=== PATIENT | female | born 1950 | race Caucasian/White ===

== ENCOUNTER 2024-12-14 08:06 | Inpatient (IN) | payer OTHER ==
[~2024-12-14] VITALS: Ht 165.1 cm; Wt 56.8 kg
[2024-12-14 08:08] VITALS: O2SAT 99
[2024-12-14 09:04] LABS: BASOPHILS % 0.3 % (0.0-2.0); HEMATOCRIT. 35.3 % (36.0-48.0); HEMOGLOBIN. 11.6 g/dL (12.0-16.0); LYMPHOCYTES % 13.2 % (20.0-50.0); MEAN CORPUSCULAR HEMOGLOBIN 26.4 pg (28.0-32.0); MEAN CORPUSCULAR HGB CONC 32.9 g/dL (31.0-37.0); MEAN CORPUSCULAR VOLUME 80.1 fL (81.0-99.0); MEAN PLATELET VOLUME 7.7 fl (7.4-10.4); MONOCYTES % 4.7 % (2.0-8.0); NEUTROPHILS % 80.8 % (40.0-76.0); PLATELET 245 x1000/uL (130-400); RED BLOOD CELL COUNT 4.41 mill/uL (4.2-5.4); RED CELL DISTRIBUTION WIDTH 14.3 % (11.6-14.6); WHITE BLOOD COUNT 8.6 x1000/uL (4.5-11.0)
[2024-12-14 09:11] LABS: CHLORIDE 110 mEq/L (98-107); POTASSIUM 3.4 mEq/L (3.5-5.1); SODIUM 142 mEq/L (136-145)
[2024-12-14 09:12] LABS: CALCIUM 8.4 mg/dL (8.7-10.4); CARBON DIOXIDE 22 mEq/L (21-32)
[2024-12-14 09:17] LABS: CREATININE 0.7 mg/dL (0.6-1.0); GLUCOSE 186 mg/dL (70-105); UREA NITROGEN BLOOD 11 mg/dL (9-23)
[2024-12-14 09:19] LABS: TROPONIN I HIGH SENSITIVITY 25 ng/L (3.0-34)
[2024-12-14 11:05] LABS: TROPONIN I HIGH SENSITIVITY 23 ng/L (3.0-34)
[2024-12-14] MEDS ORDERED: ACETAMINOPHEN 325MG TABLET PO PRN ×2 (11:15)
[2024-12-14] MEDS ORDERED: ONDANSETRON HCL 4MG/2ML INJ IV PRN (11:15)
[2024-12-14] MEDS ORDERED: MAGNESIUM/ALUMINUM HYDROXIDE/SIMETHICONE 30ML UDC PO PRN (11:15)
[2024-12-14] MEDS ORDERED: DOCUSATE SODIUM 100MG CAPSULE PO PRN (11:15)
[2024-12-14] MEDS ORDERED: CLONIDINE 0.1MG TABLET PO PRN (11:15)
[2024-12-14] MEDS ORDERED: IPRATROPIUM/ALBUTEROL 0.5-3(2.5)MG/3ML NEB HHN PRN (11:15)
[2024-12-14] MEDS ORDERED: GUAIFENESIN 200MG/10ML SUGAR FREE UDC PO PRN (11:15)
[2024-12-14 12:15] VITALS: BP 157/56; PULSE 95; RESP 14; TEMP 36.8; O2SAT 96
[2024-12-14] MEDS: FUROSEMIDE 40MG/4ML VIAL IVP NR (12:58)
[2024-12-14] MEDS ORDERED: NITROGLYCERIN 0.4MG TABLET SL SL PRN (13:00)
[2024-12-14] MEDS: POTASSIUM CHLORIDE 20MEQ/PACKET PO NR (13:00)
[2024-12-14 13:05] VITALS: BP 157/56; PULSE 95; RESP 16; TEMP 36.8
[2024-12-14] MEDS: PANTOPRAZOLE SODIUM 40 MG/VIAL IV SCH (13:34)
[2024-12-14] MEDS: ASPIRIN 81MG EC TABLET PO SCH (13:35)
[2024-12-14] MEDS: LOSARTAN 25 MG TABLET PO SCH (13:35)
[2024-12-14] MEDS: ENOXAPARIN 40MG/0.4ML SYR SUBCUT SCH (13:45)
[2024-12-14 18:26] LABS: CREATINE KINASE MB FRACTION 1.8 ng/mL (0.5-3.6); PHOSPHORUS 2.9 mg/dL (2.5-4.9)
[2024-12-14 20:00] VITALS: BP 137/69; PULSE 76; RESP 18; TEMP 37; O2SAT 98
[2024-12-14 20:50] LABS: IRON 38 ug/dL (50-170)
[2024-12-14 20:52] LABS: INR 1.1; PROTHROMBIN TIME 11.5 sec (9.6-11.0)
[2024-12-14 20:53] LABS: TOTAL IRON BINDING CAPACITY 324 ug/dl (250-425)
[2024-12-14 20:56] LABS: FERRITIN 12 ng/mL (10-291); T4 FREE 1.41 ng/dL (0.89-1.76)
[2024-12-14 20:57] LABS: THYROID STIMULATING HORMONE 2.42 uIU/mL (0.55-4.78)
[2024-12-14 21:10] LABS: FOLIC ACID (FOLATE) SERUM > 20.00 ng/mL (>5.38); VITAMIN B12 SERUM 254 pg/mL (211-911)
[2024-12-14] MEDS: ATORVASTATIN CALCIUM 40MG TABLET PO SCH (21:41)
[2024-12-14] MEDS: ENOXAPARIN 60MG/0.6ML SYR SUBCUT SCH (22:57)
[2024-12-15] VITALS: BP 129/70; PULSE 83; RESP 18; TEMP 36.9; O2SAT 98
[2024-12-15 01:54] LABS: CREATINE KINASE MB FRACTION 1.3 ng/mL (0.5-3.6)
[2024-12-15 04:00] VITALS: BP 132/85; PULSE 77; RESP 17; TEMP 36.8; O2SAT 98
[2024-12-15] MEDS ORDERED: METOPROLOL TARTRATE 5MG/5ML VIAL IV PRN (07:15)
[2024-12-15 08:00] VITALS: BP 140/46; PULSE 75; RESP 18; TEMP 36.5; O2SAT 96
[2024-12-15] MEDS: LOSARTAN 100 MG TABLET PO SCH (08:46)
[2024-12-15] MEDS: FUROSEMIDE 40MG/4ML VIAL IVP SCH (08:47)
[2024-12-15] MEDS: AMLODIPINE 10MG TABLET PO SCH (08:47)
[2024-12-15] MEDS: LEVOTHYROXINE SODIUM 50MCG TABLET PO SCH (08:47)
[2024-12-15 10:15] LABS: BASOPHILS % 0.8 % (0.0-2.0); EOSINOPHILS % 1.3 % (0.0-5.0); HEMATOCRIT. 38.9 % (36.0-48.0); HEMOGLOBIN. 12.6 g/dL (12.0-16.0); LYMPHOCYTES % 32.6 % (20.0-50.0); MEAN CORPUSCULAR HEMOGLOBIN 26.3 pg (28.0-32.0); MEAN CORPUSCULAR HGB CONC 32.5 g/dL (31.0-37.0); MEAN CORPUSCULAR VOLUME 80.9 fL (81.0-99.0); MEAN PLATELET VOLUME 8.4 fl (7.4-10.4); MONOCYTES % 4.9 % (2.0-8.0); NEUTROPHILS % 60.4 % (40.0-76.0); PLATELET 259 x1000/uL (130-400); RED BLOOD CELL COUNT 4.81 mill/uL (4.2-5.4); RED CELL DISTRIBUTION WIDTH 14.3 % (11.6-14.6); WHITE BLOOD COUNT 4.7 x1000/uL (4.5-11.0)
[2024-12-15 10:29] LABS: CHLORIDE 107 mEq/L (98-107); POTASSIUM 3.8 mEq/L (3.5-5.1); SODIUM 141 mEq/L (136-145)
[2024-12-15 10:30] LABS: CARBON DIOXIDE 21 mEq/L (21-32)
[2024-12-15 10:35] LABS: CREATININE 0.8 mg/dL (0.6-1.0); GLUCOSE 136 mg/dL (70-105); UREA NITROGEN BLOOD 10 mg/dL (9-23)
[2024-12-15 10:36] LABS: CREATINE KINASE MB FRACTION 1.6 ng/mL (0.5-3.6)
[2024-12-15 12:00] VITALS: BP 146/61; PULSE 77; RESP 18; TEMP 36.7; O2SAT 98
[2024-12-15 16:00] VITALS: BP 141/54; PULSE 71; RESP 17; TEMP 36.5; O2SAT 96
[2024-12-15 20:00] VITALS: BP 150/57; PULSE 96; RESP 18; TEMP 36.7; O2SAT 95
[2024-12-16] VITALS: BP 134/46; PULSE 75; RESP 20; TEMP 36.3; O2SAT 98
[2024-12-16 04:00] VITALS: BP 151/57; PULSE 77; RESP 18; TEMP 36.4; O2SAT 95
[2024-12-16 08:00] VITALS: BP 153/63; PULSE 89; RESP 18; TEMP 37; O2SAT 98
[2024-12-16 12:00] VITALS: BP 126/52; PULSE 89; RESP 18; TEMP 36.2; O2SAT 97
[2024-12-16 16:00] VITALS: BP 117/51; PULSE 76; RESP 17; TEMP 36.2; O2SAT 97
[2024-12-16] MEDS: DIPHENHYDRAMINE 50MG/ML VIAL IV PRN (17:50)
[2024-12-17] MEDS ORDERED: FUROSEMIDE 40MG/4ML VIAL IVP SCH (09:00)
== END 2024-12-16 20:37 | disposition left against medical advice (07) | DRG 194 ==
LOC: ER 08:06 → 6WST 10:41 → EDBEDREQ 10:46 → EDBEDREQTM 10:46
PROVIDERS: ADMIT Internal Medicine; ATTEND Internal Medicine
DX: I11.0 Hypertensive heart disease with heart failure (principal); D50.9 Iron deficiency anemia, unspecified; I50.9 Heart failure, unspecified; E03.9 Hypothyroidism, unspecified; Z53.21 Procedure and treatment not carried out due to patient leaving prior to being seen by health care provider; E87.6 Hypokalemia; I48.0 Paroxysmal atrial fibrillation; D64.9 Anemia, unspecified; E78.00 Pure hypercholesterolemia, unspecified; Z79.899 Other long term (current) drug therapy
CPT/HCPCS: 36415; 71045; 80048; 80061; 82550; 82553; 82607; 82728; 82746; 83036; 83540; 83550; 83735; 83880; 84100; 84439; 84443; 84484; 85025; 93005; 93306; 93970; 99285; A4606; J1200; J1650; J1940; J2470